=== PATIENT | male | born 2005 | race Two or more races ===

== ENCOUNTER 2023-01-17 21:22 | Emergency (ER) | payer OTHER ==
[~2023-01-17] VITALS: Ht 193 cm; Wt 270.0 kg
[2023-01-17 21:25] VITALS: BP 152/88; PULSE 90; RESP 14; TEMP 98.6
[2023-01-18] MEDS ORDERED: PERTUSS(ACELL),DIPH,TET VAC/PF 0.5 ML SYRINGE IM. ONE (00:30)
== END 2023-01-18 00:46 | disposition home or self-care (01) ==
LOC: EMS 21:23
DX: S61.211A Laceration without foreign body of left index finger without damage to nail, initial encounter (principal); J45.909 Unspecified asthma, uncomplicated; W45.8XXA Other foreign body or object entering through skin, initial encounter; Y93.89 Activity, other specified; Y92.89 Other specified places as the place of occurrence of the external cause; Y99.8 Other external cause status
CPT/HCPCS: 12001; 90471; 90715; 99283

== ENCOUNTER 2024-07-28 12:57 | Emergency (ER) | payer OTHER ==
[~2024-07-28] VITALS: Ht 193 cm; Wt 125.5 kg
[~2024-07-28 12:57] MED LIST: AMOX-457 PO
[2024-07-28 13:01] VITALS: TEMP 98.3
[2024-07-28 13:22] LABS: BASOPHILS % (AUTO) 0.5 % (0.0-2.0); HEMATOCRIT 44.4 % (41-53); HEMOGLOBIN 14.4 g/dL (13.5-17.5); LYMPHOCYTES % (AUTO) 15.2 % (22.0-44.0); MEAN CORPUSCULAR HEMOGLOBIN 29.2 pg (26.0-34.0); MEAN CORPUSCULAR HGB CONC 32.5 G/dL (31.0-37.0); MEAN CORPUSCULAR VOLUME 90 fL (80-100); MONOCYTES # (AUTO) 0.8 K/uL (0.1-1.0); NEUTROPHILS % (AUTO) 77.3 % (40.0-70.0); PLATELET COUNT (AUTO) 338 K/uL (150-450); RED BLOOD CELL COUNT(AUTO) 4.94 MIL/uL (4.50-5.90); RED CELL DISTRIBUTION WIDTH 13.6 % (11.5-14.5); WHITE BLOOD COUNT (AUTO) 12.9 K/uL (4.5-11.0)
[2024-07-28 13:57] LABS: ANION GAP 6 mmol/L (8-16); CALCIUM, TOTAL 8.8 mg/dL (8.8-10.5); CARBON DIOXIDE 30 mmol/L (22-29); CHLORIDE 108 mmol/L (98-107); CREATININE 1.02 mg/dL (0.60-1.30); GLOMERULAR FILTR. RATE CALC > 60 mL/min (>60); GLUCOSE,RANDOM 97 mg/dL (70-110); LIPASE 25 U/L (16-77); POTASSIUM 3.6 mmol/L (3.5-5.1); SODIUM SERUM 144 mmol/L (136-145); UREA NITROGEN, BLOOD 11 mg/dL (7-18)
[2024-07-28 14:20] LABS: APPEARANCE,URINE CLEAR (CLEAR); BILIRUBIN,URINE NEGATIVE (NEGATIVE); COLOR,URINE YELLOW (YELLOW); GLUCOSE, URINE (UA) NEGATIVE (NEGATIVE); KETONES,URINE NEGATIVE (NEGATIVE); LEUKOCYTE ESTERASE ,URINE NEGATIVE (NEGATIVE); NITRATE,URINE NEGATIVE (NEGATIVE); OCCULT BLOOD,URINE NEGATIVE (NEGATIVE); PH,URINE 5.5 (5.0-8.0); PROTEIN,URINE TRACE mg/dL (NEGATIVE); SPECIFIC GRAVITIY, URINE 1.033 (1.003-1.030); UROBILINOGEN,URINE <=1.0 mg/dL (<=1.0)
[2024-07-28] MEDS: OMEPRAZOLE 20 MG CAPSULE PO ONE (15:12)
[2024-07-28] MEDS: KETOROLAC TROMETHAMINE 30 MG/ML VIAL IVP ONE (15:13)
[2024-07-28] MEDS: ACETAMINOPHEN 500 MG TABLET PO ONE (15:13)
[2024-07-28] MEDS: ONDANSETRON HCL 4 MG/2 ML VIAL IVP ONE (15:13)
[2024-07-28] MEDS: SODIUM CHLORIDE 0.9% 2,000 ML IV ONE (15:14)
[2024-07-28 16:12] VITALS: BP 119/63; PULSE 70; RESP 18; O2SAT 98
[2024-07-28 17:31] LABS: ALANINE AMINOTRANSFERASE 31 U/L (12-78); ALBUMIN 4.1 g/dL (3.4-5.0); ALKALINE PHOSPHATASE 87 U/L (46-116); ASPARTATE AMINOTRANSFERASE 48 U/L (15-37); BILIRUBIN,TOTAL 0.7 mg/dL (0.1-1.0); TOTAL PROTEIN, SERUM 7.4 g/dL (6.4-8.2)
[2024-07-28] MEDS: PB/HYOSCY/ATR/SCOP/LIDO/MAALOX 55 ML BOTTLE PO ONE (18:20)
[2024-07-28] MEDS ORDERED: ONDA-104 PO (18:46)
[2024-07-28] MEDS ORDERED: MAG30ORA11 PO (18:46)
[2024-07-28] MEDS ORDERED: OMEP20 PO (18:46)
[2024-07-28] MEDS ORDERED: ACET-66 PO (18:46)
== END 2024-07-28 18:58 | disposition home or self-care (01) ==
LOC: EMS 13:09
DX: K52.9 Noninfective gastroenteritis and colitis, unspecified (principal); K76.0 Fatty (change of) liver, not elsewhere classified; J45.909 Unspecified asthma, uncomplicated; Z79.899 Other long term (current) drug therapy
CPT/HCPCS: 99285; 74176; 96374; 76705; 96361; 96375; 80048; 80076; 81003; 83690; 85025; 36415; J1885; J2405; J7030

== ENCOUNTER 2024-12-13 11:30 | Emergency (ER) | payer OTHER ==
[~2024-12-13] VITALS: Ht 193 cm; Wt 131.8 kg
[~2024-12-13 11:30] MED LIST changes: +ACET-66 PO; -AMOX-457 PO; +MAG30ORA11 PO; +OMEP-148 PO; +ONDA-104 PO
[2024-12-13 11:44] VITALS: BP 123/62; PULSE 82; RESP 19; TEMP 98.5; O2SAT 98
[2024-12-13] MEDS ORDERED: METH-812 PO (13:28)
[2024-12-13] MEDS ORDERED: IBUP-1554 PO (13:28)
[2024-12-13] MEDS: IBUPROFEN 600 MG TABLET PO ONE (13:36)
== END 2024-12-13 13:38 | disposition home or self-care (01) ==
LOC: EMS 11:35
DX: S29.012A Strain of muscle and tendon of back wall of thorax, initial encounter (principal); J45.909 Unspecified asthma, uncomplicated; Z98.890 Other specified postprocedural states; Z79.899 Other long term (current) drug therapy; X50.9XXA Other and unspecified overexertion or strenuous movements or postures, initial encounter; Y93.89 Activity, other specified; Y92.89 Other specified places as the place of occurrence of the external cause; Y99.8 Other external cause status
CPT/HCPCS: 99283

== ENCOUNTER 2025-05-29 21:25 | Emergency (ER) | payer MEDICAID, OTHER ==
[~2025-05-29] VITALS: Ht 193 cm; Wt 131.8 kg
[~2025-05-29 21:25] MED LIST changes: +IBUP-1554 PO; -MAG30ORA11 PO; +METH-812 PO; -OMEP-148 PO; -ONDA-104 PO
[2025-05-29 21:58] LABS: APPEARANCE,URINE CLEAR (CLEAR); GLUCOSE, URINE (UA) TRACE mg/dL (NEGATIVE); LEUKOCYTE ESTERASE ,URINE NEGATIVE (NEGATIVE); NITRATE,URINE NEGATIVE (NEGATIVE); OCCULT BLOOD,URINE NEGATIVE (NEGATIVE); SPECIFIC GRAVITIY, URINE 1.032 (1.003-1.030)
[2025-05-30 00:19] VITALS: TEMP 99.3
[2025-05-30] MEDS: IBUPROFEN 400 MG TABLET PO ONE (01:16)
[2025-05-30] MEDS: ACETAMINOPHEN 500 MG TABLET PO ONE (01:16)
[2025-05-30 02:20] VITALS: BP 141/85; PULSE 88; RESP 16; O2SAT 99
== END 2025-05-30 02:34 | disposition home or self-care (01) ==
LOC: EMS 21:25
DX: N50.811 Right testicular pain (principal); J45.909 Unspecified asthma, uncomplicated; Z79.899 Other long term (current) drug therapy
CPT/HCPCS: 76870; 81003; 99284